=== PATIENT | male | born 1965 | race Caucasian/White ===

== ENCOUNTER 2018-12-03 09:43 | Day surgery (SDC) | payer OTHER ==
[2018-12-02 10:15] VITALS: BMI 34.9
[~2018-12-03 09:43] MED LIST: LACTATED RINGERS 1,000 ML IV SCH
[2018-12-03 10:15] VITALS: RESP 16; TEMP 97.1
[2018-12-03] MEDS ORDERED: LIDOCAINE 1% 20 ML VIAL (10MG/ML) FOR IV START INTRADERMA ONE (10:15)
[2018-12-03] MEDS ORDERED: PROPOFOL 10 MG/ML 20 ML VIAL IV ONE (11:27)
--- NOTE | 2018-12-03 11:54 | P.PCN ---
Date of Procedure: 12/03/18 Procedure(s) Performed: Procedure: Total colonoscopy. Preoperative diagnosis: Screening for neoplasia. Postoperative diagnosis: Sigmoid diverticulosis with no evidence of acute diverticulitis, strictures, polyps or cancer.. Preparation: HalfLytely prep. Sedation: Was provided by anesthesia. Brief clinical history: The patient is a 53-year-old male who is scheduled for this evaluation for screening for neoplasia age being his risk factor. No family history of colon cancer. He has no abdominal complaints, bleeding or anemia. This would be his first colonoscopy. Procedure: With the patient on his left lateral decubitus position and after informed consent and adequate sedation, the perianal area was inspected and it did not show any fissures or fistulas. There were no masses felt on digital rectal examination. The Olympus CFH 190L video colonoscope was then inserted in the rectum in the usual fashion and advanced to the cecum. There was multiple diverticular orifices seen scattered in the sigmoid but no evidence of acute diverticulitis or strictures. No polyps or tumors were seen. I retroflexed the endoscope in the rectum before the endoscope was withdrawn. The patient tolerated the procedure well. Plan: The patient was reassured. He will follow up with you as planned and I recommended repeat exam in 10 years.
[2018-12-03 12:13] VITALS: BP 128/80; PULSE 66
== END 2018-12-03 12:31 | disposition home or self-care (01) ==
LOC: ORWHC2ENDO 09:43
DX: Z12.11 Encounter for screening for malignant neoplasm of colon (principal); K57.30 Diverticulosis of large intestine without perforation or abscess without bleeding; I10 Essential (primary) hypertension; F17.290 Nicotine dependence, other tobacco product, uncomplicated; Z79.899 Other long term (current) drug therapy
CPT/HCPCS: J2704; G0121; 45378

== ENCOUNTER → 2025-01-20 | Outpatient (CLI) | payer BC ==
--- NOTE | 2025-01-20 10:53 | MR ---
EXAMINATION TYPE: MR Prostate wo/w con DATE OF EXAM: 01/20/2025 9:55 AM COMPARISON: None. CLINICAL INDICATION: Male, 59 years old with history of R97.20 ELEVATED PROSTATE SPECIFIC ANTIGEN; e levated psa TECHNIQUE: Multi-planar, multi-sequence imaging of the pelvis is performed prior to and following the uncomplicated administration of bolus intravenous gadolinium. IV Contrast: 11ml mL Gadobutrol Interpretive Criteria: PI-RADS v2.1 SERUM PSA: 5.86 PSA 10/07/24, 4.09 PSA 10/28/23, 3.67 PSA 08/13/22 SURGICAL PATHOLOGY: No data available. FINDINGS: Prostatic dimensions: 4.5 x 4.1 x 4.1 cm. "Bullet" Volume:49.51 (PSA density=0.12 ng/mL/mL) PROSTATE GLAND (Central and Transition Zones/CZ+TZ): Arterial enhancement of the left anterior mid gland/ possibly involving the anterior peripheral zone along the capsule measuring 16 x 10 mm which is iso-DWI/ADC signal however more circumscribed and uni formly hypointense on T2-weighted imaging. Doesn't enhance significantly more than surrounding tissue (PI-RADS 5) SEMINAL VESICLES (SV): Symmetric and unremarkable. PERIPROSTATIC TISSUES: Unremarkable. LYMPH NODES: No enlarged pelvic lymph node. REMAINING PELVIS: Bladder wall is within normal limits given distention. No abnormal free or organized intrapelvic fluid collection. No pathologic bowel dilation or mural thickening. No hernia visualized OSSEOUS STRUCTURES: No suspicious osseous abnormality. IMPRESSION: 1. Left anterior prostate mid gland hypointense T2 signal lesion along the capsule with bulging of th e capsule and marked with arterial enhancement. Findings suspicious for clinically significant prosta te adenocarcinoma. Tissue sampling recommended of this area measuring 16 x 10 mm. PI-RADS 5 2. Mild BPH, estimated gland volume 49.51 (PSA density=0.12 ng/mL/mL) 3. No suspicious osseous lesion. No lymphadenopathy. No evidence of prostate adenocarcinoma involving the periprostatic tissues. [facility], , 01/20/2025 10:51 AM
== END | disposition home or self-care (01) ==
LOC: RADMRIMAIN 08:40
PROVIDERS: ATTEND Urology
DX: N40.0 Benign prostatic hyperplasia without lower urinary tract symptoms (principal); R97.20 Elevated prostate specific antigen [PSA]
CPT/HCPCS: 72197; A9585

== ENCOUNTER → 2025-02-18 | Outpatient (CLI) | payer BC ==
[2025-02-19 01:47] LABS: Basophils # (A) 0.03 X 10*3/uL (0.00-0.10); Basophils % (A) 0.4 %; Eosinophils # (A) 0.08 X 10*3/uL (0.04-0.35); Eosinophils % (A) 1.1 %; HCT 45.3 % (39.6-50.0); HGB 15.3 g/dL (13.0-17.0); Lymphocytes # (A) 2.21 X 10*3/uL (0.90-5.00); Lymphocytes % (A) 31.6 %; MCH 29.5 pg (27.0-32.0); MCHC 33.8 g/dL (32.0-37.0); MCV 87.3 FL (80.0-97.0); Mean Platelet Volume 9.4 FL (9.5-12.2); Monocytes # (A) 0.59 X 10*3/uL (0.20-1.00); Monocytes % (A) 8.4 %; NRBC Per 100 WBC 0 X 10*3/uL (0.00-0.01); Neutrophils # (A) 4.06 X 10*3/uL (1.80-7.70); Neutrophils % (A) 58.2 %; Platelet Count 264 X 10*3/uL (140-440); RBC 5.19 X 10*6/uL (4.40-5.60); RDW 13.3 % (11.5-14.5); WBC 6.99 X 10*3/uL (4.50-10.00)
[2025-02-19 02:17] LABS: ALT 34 U/L (10-49); AST 26 U/L (14-35); Albumin 4.6 g/dL (3.8-4.9); Albumin/Globulin Ratio 1.59 Ratio (1.60-3.17); Alkaline Phosphatase 64 U/L (41-126); Blood Urea Nitrogen 16.8 mg/dL (9.0-27.0); Calcium 9.8 mg/dL (8.7-10.3); Carbon Dioxide 23.3 mmol/L (21.6-31.8); Chloride 99 mmol/L (96-109); Globulin 2.9 g/dL (1.6-3.3); Glucose 128 mg/dL (70-110); Sodium 137 mmol/L (135-145); Total Bilirubin 0.5 mg/dL (0.3-1.2); Total Protein 7.5 g/dL (6.2-8.2)
== END | disposition home or self-care (01) ==
LOC: LABPAT 16:15
PROVIDERS: ATTEND Urology
DX: Z01.812 Encounter for preprocedural laboratory examination (principal); R97.20 Elevated prostate specific antigen [PSA]
CPT/HCPCS: 80053; 85025

== ENCOUNTER 2025-02-24 06:32 | Day surgery (SDC) | payer BC ==
[2025-02-19 14:58] VITALS: BMI 36.5
[~2025-02-24 06:32] MED LIST changes: -LACTATED RINGERS 1,000 ML IV SCH; +LIDOCAINE 1% (10MG/ML) FOR IV START INTRADERMA PRN
[2025-02-24 06:52] VITALS: TEMP 97.1
--- NOTE | 2025-02-24 06:58 | P.GSHP ---
History of Present Illness H&P Date: 02/24/25 Chief Complaint: Elevated PSA level The patient is a 59-year-old white male whose PSA level katie from 4.09 in October 30-5.86 in September 2024. Digital rectal examination revealed a palpable irregularity superior to the left prostatic lobe near the midline. MRI showed a PI-RADS 5 lesion within the left transitional zone. He has been advised to undergo MRI fusion biopsies and comes for this reason. - Cardiovascular Cardiovascular: Reports high blood pressure - Genitourinary (Male) Genitourinary: Reports urinary frequency Past Medical History Past Medical History: Hypertension, Prostate Disorder History of Any Multi-Drug Resistant Organisms: None Reported Past Surgical History: Hernia Repair, Orthopedic Surgery Additional Past Surgical History / Comment(s): RT WRIST; LT KNEE SCOPE X2, COLONOSCOPY, VASECTOMY Past Anesthesia/Blood Transfusion Reactions: No Reported Reaction Smoking Status: Current some day smoker - Past Family History Mother History Unknown: Yes Family Medical History: Unable to Obtain Medications and Allergies Home Medications Medication Instructions Recorded Confirmed Type Losartan/Hydrochlorothiazide 1 each PO DAILY 12/02/18 02/24/25 History [Losartan-Hctz 50-12.5 mg Tab] Allergies Allergy/AdvReac Type Severity Reaction Status Date / Time No Known Allergies Allergy Verified 02/24/25 06:47 Surgical - Exam - General well developed, well nourished, no distress - Respiratory normal respiratory effort - Abdomen Abdomen: soft, non tender, no guarding, no rigid, no rebound - Genitourinary normal penis with no external lesions, testicles non-tender - Rectum Rectum: normal sphincter tone, no masses, other (Prostate moderately enlarged with questionable nodule superior to the left prostatic lobe.) - Psychiatric oriented to time, oriented to person, oriented to place, speech is normal, memory intact Assessment and Plan (1) Elevated prostate specific antigen [PSA] Current Visit: Yes Status: Acute Code(s): R97.20 - ELEVATED PROSTATE SPECIFIC ANTIGEN [PSA] SNOMED Code(s): 646149623 Plan: The patient will undergo MRI-Ultrasound fusion transrectal biopsies of the prostate, performed by Dr. Sultana. The procedure has been reviewed in detail with the patient. He has been made aware of potential risks, which include an esthesia, bleeding, and infection. He is also aware that a negative biopsy does not completely rule out prostate cancer.
[2025-02-24] MEDS: LACTATED RINGERS 1,000 ML IV ONE (07:07)
[2025-02-24] MEDS: LACTATED RINGERS 1,000 ML IV SCH (07:07)
[2025-02-24] MEDS: GENTAMICIN 40 MG/ML 2 ML VIAL IM PRN (08:09)
[2025-02-24] MEDS ORDERED: fentaNYL (PF) 50 MCG/ML 2 ML AMP ONE (08:21)
[2025-02-24] MEDS ORDERED: PROPOFOL 10 MG/ML 20 ML VIAL IV ONE (08:21)
[2025-02-24] MEDS ORDERED: MIDAZOLAM 2 MG/2 ML VIAL ONE (08:21)
--- NOTE | 2025-02-24 08:50 | P.OP ---
Date of Procedure: 02/24/25 Preoperative Diagnosis: Elevated PSA Postoperative Diagnosis: Same Procedure(s) Performed: MRI fusion biopsy of the prostate Anesthesia: MAC Surgeon: Eyad Sultana Estimated Blood Loss (ml): 0 Pathology: other (Prostate biopsies) Condition: stable Disposition: PACU Indications for Procedure: The patient is a 59-year-old white male whose PSA level katie from 4.09 in October 30-5.86 in September 2024. Digital rectal examination revealed a palpable irregularity superior to the left prostatic lobe near the midline. MRI showed a PI-RADS 5 lesion within the left transitional zone. He has been advised to undergo MRI fusion biopsies and comes for this reason. Description of Procedure: The patient was taken to the operating room and placed in the left lateral decubitus position. The Eye-Q transrectal ultrasound probe was placed intrarectally. It was then placed within the stand of the [employer] MRI/TRUS Fusion for Prostate Biopsy system. The prostate was imaged in both the axial and sagittal planes. Using the Biopsy gun, 4 biopsies were obtained from the target lesion, there were was one lesions, . The remaining 12 biopsies of the peripheral zone were obtained utilizing a standard template. Once the procedure was completed, the ultrasound probe was removed. The patient tolerated the procedure well was taken to the recovery room stable condition
[2025-02-24 09:00] VITALS: BP 155/72; PULSE 75; RESP 18
== END 2025-02-24 09:20 | disposition home or self-care (01) ==
LOC: OR 06:32
PROVIDERS: ATTEND Urology
DX: C61 Malignant neoplasm of prostate (principal); I10 Essential (primary) hypertension; F17.200 Nicotine dependence, unspecified, uncomplicated; E11.9 Type 2 diabetes mellitus without complications; Z98.890 Other specified postprocedural states; Z79.899 Other long term (current) drug therapy
CPT/HCPCS: 55700; 88305; J2250; J1580; J3010; J2704